=== PATIENT | male | born 1995 | race Caucasian/White ===

== ENCOUNTER 2017-12-04 03:55 | Emergency (ER) | payer OTHER ==
[~2017-12-04] VITALS: Ht 177.8 cm; Wt 72.6 kg
--- NOTE | 2017-12-04 04:18 | ER Report ---
History and Physical Time Seen By MD: 04:12 Hx. of Stated Complaint: patient woke up 30min ago with right ear pain; patient states that is is sharp pain HPI/ROS CHIEF COMPLAINT: Right ear pain HISTORY OF PRESENT ILLNESS: Right sided ear pain onset 03 20 this morning without hearing loss discharge or tinnitus associated symptoms include sore throat. No fevers. No vomiting REVIEW OF SYSTEMS: Respiratory: No cough, no dyspnea. Cardiovascular: No chest pain, no palpitations. Gastrointestinal: No vomiting, no abdominal pain. Musculoskeletal: No back pain. Allergies: Coded Allergies: No Known Drug Allergies (Unverified , 12/04/17) Home Meds No Active Prescriptions or Reported Meds Hx Substance Use Disorder: No Hx Alcohol Use: No Constitutional Vital Sign - Last 24 Hours 12/04/17 04:00 Temp 98.8 Pulse 54 Resp 19 B/P (MAP) 139/101 Pulse Ox 97 O2 Delivery Room Air Physical Exam General Appearance: The patient is alert, has no immediate need for airway protection and no current signs of toxicity. No acute distress Eyes: Pupils equal and round no injection. HEENT: Right tympanic membrane injected with loss of landmarks, left appears normal, mild erythema posterior oropharynx without significant tonsillar swelling or abscess. No exudates Respiratory: Chest is non tender, lungs are clear to auscultation. Cardiac: regular rate and rhythm no murmurs gallops or rubs Gastrointestinal: Abdomen is soft and non tender, no masses, bowel sounds normal. Musculoskeletal: Neck: Neck is supple and non tender. Extremities have full range of motion and are non tender. Skin: No rashes or lesions. Normal DIFFERENTIAL DIAGNOSIS: After history and physical exam differential diagnosis was considered for acute otitis media, otitis externa, Mnire's disease Medical Decision Making ED Course/Re-evaluation ED Course Acute otitis media requests Motrin for pain denies antibiotic allergies Decision to Disposition Date: Dec 04, 2017 Decision to Disposition Time: 04:20 Depart Departure Latest Vital Signs Vital Signs Date Time Temp Pulse Resp B/P (MAP) Pulse Ox O2 Delivery O2 Flow Rate FiO2 12/04/17 04:00 98.8 54 19 139/101 97 Room Air Impression: Primary Impression: Acute otitis media with effusion of right ear Condition: Improved Disposition: HOME OR SELF-CARE Referrals: [facility] Amoxicillin (AMOXICILLIN) 500 Mg Capsule 1 CAP PO Q8H for 10 Days, #30 CAPSULE 0 Refills Prov: MAURI PARKER MD 12/04/17 Patient Instructions: Otitis Media (ED) MAURI PARKER MD Dec 04, 2017 04:18
[2017-12-04] MEDS ORDERED: IBUPROFEN 600 MG TAB PO ONE (04:20)
[2017-12-04] MEDS ORDERED: PROPARACAINE 0.5% OP 15ML BTL OD ONE (04:20)
[2017-12-04] MEDS ORDERED: AMOX-362 PO (04:21)
[2017-12-04 04:34] VITALS: BP 134/88
== END 2017-12-04 04:32 | disposition home or self-care (01) ==
LOC: ER 04:15
DX: H66.91 Otitis media, unspecified, right ear (principal)
CPT/HCPCS: 99282

== ENCOUNTER 2019-02-11 12:46 | Day surgery (SDC) | payer OTHER ==
[~2019-02-11 12:46] MED LIST: AMOX-362 PO
--- NOTE | 2019-02-11 13:03 | ER Report ---
History and Physical Time Seen By MD: 12:57 Hx. of Stated Complaint: PATIENT STATES THAT HE HAS HAD ABDOMINAL PAIN SINCE 0600; STATES THAT IT WAS "ALL OVER" AND NOW IT IS RIGHT LOWER QUADRANT; STATES THAT PAIN THIS AM WAS AN 8 AND NOW IT IS AN 1 HPI/ROS CHIEF COMPLAINT: Abdominal pain HISTORY OF PRESENT ILLNESS: This is a 23-year-old male presents to emergency department for abdominal pain per patient states that when he woke up this morning he had generalized abdominal pain, localizing now to the right lower quadrant, does have some exacerbation of the discomfort in the right lower quadrant with urination however he denies STDs or testicular pain or penile discharge. No fevers or chills, he did have nausea this morning no vomiting. Stools were a bit more firm today than usual, no blood noted. No chest pain or shortness of breath. The pain is now resolving. REVIEW OF SYSTEMS: Constitutional: No fever, no chills. Eyes: No discharge. ENT: No sore throat. Cardiovascular: No chest pain, no palpitations. Respiratory: No cough, no shortness of breath. Gastrointestinal: As above. Genitourinary: As above. Musculoskeletal: No back pain. Skin: No rashes. Neurological: No headache. Allergies: Coded Allergies: No Known Drug Allergies (Unverified , 02/11/19) Home Meds Discontinued Scripts Amoxicillin (AMOXICILLIN) 500 Mg Capsule, 1 CAP PO Q8H for 10 Days, #30 CAPSULE 0 Refills Prov:MAURI PARKER MD 12/04/17 Past Medical/Surgical History The patient has a past medical and surgical history of right collarbone fracture, anxiety with suicidal thoughts, not currently today. Reviewed Nurses Notes: Yes Hx Substance Use Disorder: No Hx Alcohol Use: No Constitutional Vital Sign - Last 24 Hours 02/11/19 02/11/19 02/11/19 02/11/19 12:52 12:52 13:00 13:16 Temp 98.7 Pulse 78 62 Resp 18 B/P (MAP) 151/99 (116) 151/99 143/81 (101) Pulse Ox 98 95 O2 Delivery Room Air 02/11/19 02/11/19 02/11/19 02/11/19 13:30 13:46 14:00 14:16 Pulse 63 58 B/P (MAP) 127/71 (89) 136/83 (100) Pulse Ox 96 94 02/11/19 14:30 Temp 98.7 B/P (MAP) 155/62 (93) Physical Exam General Appearance: The patient is alert, has no immediate need for airway protection and no signs of toxicity. Eyes: Pupils equal and round no pallor or injection. ENT, Mouth: Mucous membranes are moist. Respiratory: There are no retractions, lungs are clear to auscultation. Cardiovascular: Regular rate and rhythm. Gastrointestinal: Abdomen is soft, very mild right lower tenderness with firm palpation, no rebound tenderness, no masses, bowel sounds normal. No CVA tenderness. Neurological: Alert and oriented to 4. Moving all extremities. Following all commands. No focal neuro deficits. Skin: Warm and dry, no rashes. Musculoskeletal: Neck is supple non tender. Extremities are nontender, nonswollen and have full range of motion. DIFFERENTIAL DIAGNOSIS: After history and physical exam differential diagnosis was considered for abdominal pain including but not limited to appendicitis, renal colic, cholecystitis, gastritis and urinary tract infection. Medical Decision Making Data Points Result Diagram: 02/11/19 0000 02/11/19 0000 Laboratory Hematology Test 02/11/19 00:00 02/11/19 12:51 Red Blood Count 5.95 M/uL (4.00-5.60) Mean Corpuscular Volume 90.4 fL (80.0-96.0) Mean Corpuscular Hemoglobin 30.8 pg (26.0-33.0) Mean Corpuscular Hemoglobin Concent 34.1 g/dL (32.0-36.0) Red Cell Distribution Width 12.8 % (11.5-14.5) Mean Platelet Volume 7.6 fL (7.2-11.1) Neutrophils (%) (Auto) 73.7 % (39.4-72.5) Lymphocytes (%) (Auto) 14.9 % (17.6-49.6) Monocytes (%) (Auto) 10.8 % (4.1-12.4) Eosinophils (%) (Auto) 0.3 % (0.4-6.7) Basophils (%) (Auto) 0.3 % (0.3-1.4) Nucleated RBC Relative Count (auto) 0.0 /100WBC Neutrophils # (Auto) 10.3 K/uL (2.0-7.4) Lymphocytes # (Auto) 2.1 K/uL (1.3-3.6) Monocytes # (Auto) 1.5 K/uL (0.3-1.0) Eosinophils # (Auto) 0.0 K/uL (0.0-0.5) Basophils # (Auto) 0.0 K/uL (0.0-0.1) Nucleated RBC Absolute Count (auto) 0.00 K/uL Sodium Level 141 mmol/L (137-145) Potassium Level 3.8 mmol/L (3.5-5.0) Chloride Level 102 mmol/L (98-107) Carbon Dioxide Level 26 mmol/L (22-30) Blood Urea Nitrogen 14 mg/dl (9-21) Creatinine 1.30 mg/dl (0.66-1.25) Glomerular Filtration Rate Calc > 60.0 Random Glucose 99 mg/dl (75-110) Calcium Level 10.2 mg/dl (8.4-10.2) Total Bilirubin 2.4 mg/dl (0.2-1.3) Aspartate Amino Transf (AST/SGOT) 33 U/L (0-35) Alanine Aminotransferase (ALT/SGPT) 27 U/L (0-56) Alkaline Phosphatase 100 U/L (0-126) Total Protein 8.6 g/dl (6.3-8.2) Albumin 5.4 g/dl (3.5-5.0) Urine Color Yellow Urine Clarity Clear Urine pH 7.0 pH (4.8-9.5) Urine Specific [place] 1.009 Urine Protein Negative mg/dL (NEGATIVE) Urine Glucose (UA) Negative mg/dL (NEGATIVE) Urine Ketones Negative mg/dL (NEGATIVE) Urine Blood Negative (NEGATIVE) Urine Nitrite Negative (NEGATIVE) Urine Bilirubin Negative (NEGATIVE) Urine Urobilinogen Negative mg/dL (0.2-1.9) Urine Leukocyte Esterase Negative (NEGATIVE) Urine RBC None /HPF (0-2/HPF) Urine WBC None /HPF (0-5/HPF) Urine Squamous Epithelial Cells None /LPF (</=FEW) Urine Bacteria Negative /HPF (NONE-FEW) Urine Mucus None /HPF (NONE-FEW) Chemistry Test 02/11/19 00:00 02/11/19 12:51 White Blood Count 14.0 k/uL (4.5-11.0) Red Blood Count 5.95 M/uL (4.00-5.60) Hemoglobin 18.4 g/dL (14.0-18.0) Hematocrit 53.8 % (42.0-52.0) Mean Corpuscular Volume 90.4 fL (80.0-96.0) Mean Corpuscular Hemoglobin 30.8 pg (26.0-33.0) Mean Corpuscular Hemoglobin Concent 34.1 g/dL (32.0-36.0) Red Cell Distribution Width 12.8 % (11.5-14.5) Platelet Count 279 K/uL (150-450) Mean Platelet Volume 7.6 fL (7.2-11.1) Neutrophils (%) (Auto) 73.7 % (39.4-72.5) Lymphocytes (%) (Auto) 14.9 % (17.6-49.6) Monocytes (%) (Auto) 10.8 % (4.1-12.4) Eosinophils (%) (Auto) 0.3 % (0.4-6.7) Basophils (%) (Auto) 0.3 % (0.3-1.4) Nucleated RBC Relative Count (auto) 0.0 /100WBC Neutrophils # (Auto) 10.3 K/uL (2.0-7.4) Lymphocytes # (Auto) 2.1 K/uL (1.3-3.6) Monocytes # (Auto) 1.5 K/uL (0.3-1.0) Eosinophils # (Auto) 0.0 K/uL (0.0-0.5) Basophils # (Auto) 0.0 K/uL (0.0-0.1) Nucleated RBC Absolute Count (auto) 0.00 K/uL Glomerular Filtration Rate Calc > 60.0 Calcium Level 10.2 mg/dl (8.4-10.2) Total Bilirubin 2.4 mg/dl (0.2-1.3) Aspartate Amino Transf (AST/SGOT) 33 U/L (0-35) Alanine Aminotransferase (ALT/SGPT) 27 U/L (0-56) Alkaline Phosphatase 100 U/L (0-126) Total Protein 8.6 g/dl (6.3-8.2) Albumin 5.4 g/dl (3.5-5.0) Urine Color Yellow Urine Clarity Clear Urine pH 7.0 pH (4.8-9.5) Urine Specific [place] 1.009 Urine Protein Negative mg/dL (NEGATIVE) Urine Glucose (UA) Negative mg/dL (NEGATIVE) Urine Ketones Negative mg/dL (NEGATIVE) Urine Blood Negative (NEGATIVE) Urine Nitrite Negative (NEGATIVE) Urine Bilirubin Negative (NEGATIVE) Urine Urobilinogen Negative mg/dL (0.2-1.9) Urine Leukocyte Esterase Negative (NEGATIVE) Urine RBC None /HPF (0-2/HPF) Urine WBC None /HPF (0-5/HPF) Urine Squamous Epithelial Cells None /LPF (</=FEW) Urine Bacteria Negative /HPF (NONE-FEW) Urine Mucus None /HPF (NONE-FEW) Urinalysis Test 02/11/19 12:51 Urine Color Yellow Urine Clarity Clear Urine pH 7.0 pH (4.8-9.5) Urine Specific [place] 1.009 Urine Protein Negative mg/dL (NEGATIVE) Urine Glucose (UA) Negative mg/dL (NEGATIVE) Urine Ketones Negative mg/dL (NEGATIVE) Urine Blood Negative (NEGATIVE) Urine Nitrite Negative (NEGATIVE) Urine Bilirubin Negative (NEGATIVE) Urine Urobilinogen Negative mg/dL (0.2-1.9) Urine Leukocyte Esterase Negative (NEGATIVE) Urine RBC None /HPF (0-2/HPF) Urine WBC None /HPF (0-5/HPF) Urine Squamous Epithelial Cells None /LPF (</=FEW) Urine Bacteria Negative /HPF (NONE-FEW) Urine Mucus None /HPF (NONE-FEW) EKG/Imaging Imaging Location: [facility] [place] Patient: Jorge Alberto Raya : 1995 Visit/Account:[id number] Date of Sevice: 02/11/2019 EXAMINATION: CT abdomen with IV contrast CT pelvis with IV contrast HISTORY: Right lower quadrant pain. Evaluate for appendicitis. COMPARISON: None. TECHNIQUE: Axial images were taken through the abdomen and pelvis with intravenous contrast. Sagittal and coronal reformatted images are also submitted. CONTRAST: 75 mL of IV Isovue-370. One of the following dose optimization techniques was utilized in the performance of this exam: Automated exposure control; adjustment of the mA and/or kV according to the patient's size; or use of an iterative reconstruction technique. Specific details can be referenced in the facility's radiology CT exam operational policy. FINDINGS: Liver/biliary: Negative. Pancreas: Negative. Spleen: Negative. Adrenal glands: Negative. Kidneys: Negative. Pelvic structures: Negative. Bowel: The appendix is inferior to the cecum and is abnormal. The appendix measures 11 mm in greatest thickness and the roa are edematous and mildly enhancing. Peritoneum/retroperitoneum/mesenteries: There is inflammatory stranding adjacent to the appendix. Small amount of free fluid in the pelvis. Vessels: Negative. Musculoskeletal/body wall: There are a few small Schmorl's nodes in the visualized spine. Lymph nodes: Negative. Lower chest: Negative. IMPRESSION: : Acute appendicitis. These findings were discussed with FAWAD HOANG at 02/11/2019 2:21 PM. Report Dictated By: Edwina Harrington MD at 02/11/2019 2:17 PM Report E-Signed By: Edwina Harrington MD at 02/11/2019 2:22 PM WSN:[email or web address] ED Course/Re-evaluation Clinical Indication for ER IV: Hydration, IV Access ED Course The patient was admitted to room. A history and physical were obtained. Differential diagnoses were considered. An IV was started. A CBC, CMP were obtained. Initially on exam patient was not having significant pain to the right lower quadrant, was going to start with a KUB however the patient's white count was 14,000, I reviewed this with the patient and suggested a CT scan instead, patient was agreeable with this plan. He was given a liter of normal saline. CT did reveal positive appendicitis. I reviewed the results with the patient. I did speak with Dr. Alli Kilpatrick surgeon on-call, patient will be admitted to the OR unit and scheduled for surgery around 5:00 this evening for an acute appendicitis. Patient was given 3.375 grams of Zosyn. Patient declined the medication during his stay in the emergency department. He had no other questions or concerns at the time of admission. 02/11/2019 2:42:08 pm and speak with Dr. Carson, the surgeon on-call, the patient will be taken to the OR for acute appendicitis. The patient's last oral intake was around 11:00, last food was around 8:00 this morning which was yogurt. Decision to Disposition Date: Feb 11, 2019 Decision to Disposition Time: 14:41 Depart Departure Latest Vital Signs Vital Signs Date Time Temp Pulse Resp B/P (MAP) Pulse Ox O2 Delivery O2 Flow Rate FiO2 02/11/19 14:30 98.7 155/62 (93) 02/11/19 14:16 58 94 02/11/19 12:52 18 Room Air Impression: Primary Impression: Appendicitis, acute Condition: Improved Disposition: ADMIT FROM ER TO OR New Scripts No Active Prescriptions or Reported Meds Problem Qualifiers Primary Impression: Appendicitis, acute Acute appendicitis type: with localized peritonitis Appendicitis gangrene presence: without gangrene Appendicitis perforation presence: without perforation Appendicitis abscess presence: without abscess Qualified Codes: K35.30 - Acute appendicitis with localized peritonitis, without perf oration or gangrene FAWAD HOANG-RICHARD Feb 11, 2019 13:02
[2019-02-11] MEDS ORDERED: NS(*) 0.9% 1000 ML BAG 1,000 ML IV ONE (13:11)
[2019-02-11 13:18] LABS: PLATELET COUNT, AUTOMATED 279 K/uL (150-450)
[2019-02-11] MEDS ORDERED: IOPAMIDOL 76% 150 ML INFUS BTL 150 ML ONE (13:51)
--- NOTE | 2019-02-11 14:26 | RADIOLOGY IMAGING REPORT ---
FACILITY: [facility] [place] PATIENT NAME: Jorge Alberto Raya : 1995 MR: [id number] V: [id number] EXAM DATE: [id number] ORDERING PHYSICIAN: FAWAD HOANG TECHNOLOGIST: Location: [facility] Patient: Jorge Alberto Raya : 1995 Visit/Account:[id number] Date of Sevice: 02/11/2019 EXAMINATION: CT abdomen with IV contrast CT pelvis with IV contrast HISTORY: Right lower quadrant pain. Evaluate for appendicitis. COMPARISON: None. TECHNIQUE: Axial images were taken through the abdomen and pelvis with intravenous contrast. Sagitt al and coronal reformatted images are also submitted. CONTRAST: 75 mL of IV Isovue-370. One of the following dose optimization techniques was utilized in the performance of this exam: Autom ated exposure control; adjustment of the mA and/or kV according to the patient's size; or use of an i terative reconstruction technique. Specific details can be referenced in the facility's radiology C T exam operational policy. FINDINGS: Liver/biliary: Negative. Pancreas: Negative. Spleen: Negative. Adrenal glands: Negative. Kidneys: Negative. Pelvic structures: Negative. Bowel: The appendix is inferior to the cecum and is abnormal. The appendix measures 11 mm in greates t thickness and the roa are edematous and mildly enhancing. Peritoneum/retroperitoneum/mesenteries: There is inflammatory stranding adjacent to the appendix. Sm all amount of free fluid in the pelvis. Vessels: Negative. Musculoskeletal/body wall: There are a few small Schmorl's nodes in the visualized spine. Lymph nodes: Negative. Lower chest: Negative. IMPRESSION: : Acute appendicitis. These findings were discussed with FAWAD HOANG at 02/11/2019 2:21 PM. Report Dictated By: Edwina Harrington MD at 02/11/2019 2:17 PM Report E-Signed By: Edwina Harrington MD at 02/11/2019 2:22 PM WSN:ALESSANDRA
[2019-02-11] MEDS ORDERED: PIPERACILLIN/TAZO*3.375GM VIAL 3.375 GM in NS(*) 0.9% 100 ML MINI-BAG 100 ML IVPB ONE (14:45)
[2019-02-11] MEDS ORDERED: NORMOSOL R SOLN(*) 1000 ML BAG 1,000 ML IV ONE (15:00)
[2019-02-11] MEDS ORDERED: FAMOTIDINE(*) 20MG/50ML PREMIX 50 ML IVPB ONE (15:00)
[2019-02-11] MEDS ORDERED: ROPIVACAINE 0.5% 20 ML VIAL ONE (15:18)
[2019-02-11 15:20] VITALS: BP 141/85
--- NOTE | 2019-02-11 15:25 | NUR ---
Pt. transferred from ER to Preop via bed. Sbar from [facility]. Two RNs on transfer. Belongings to [facility]. Pain assessed, denies at this time. No nausea. Pt. alert and oriented. Assessment WNL.
[2019-02-11] MEDS ORDERED: ONDANSETRON 4 MG/2 ML VIAL ONE (16:22)
[2019-02-11] MEDS ORDERED: KETAMINE HCL-NS 50 MG/5 ML SYR ONE (16:22)
[2019-02-11] MEDS ORDERED: SUCCINYLCHOL CHL 200MG/10ML VL ONE (16:22)
[2019-02-11] MEDS ORDERED: ROCURONIUM BROM 10 MG/ML 10 ML ONE (16:22)
[2019-02-11] MEDS ORDERED: DEXAMETHASONE SOD PHOS 10MG/ML ONE (16:22)
[2019-02-11] MEDS ORDERED: LIDOCAINE 2% IV 100 MG/5ML SYR ONE (16:22)
[2019-02-11] MEDS ORDERED: fentaNYL CITR 100 MCG/2 ML AMP ONE (16:22)
[2019-02-11] MEDS ORDERED: PROPOFOL EMUL(*) 10MG/ML 20 ML 20 ML ONE (16:22)
--- NOTE | 2019-02-11 17:11 | Gen Surgery History & Physical ---
History of Present Illness Chief Complaint Abdominal pain History of Present Illness 23yo male presents with 1 day h/o abdominal pain that started at 06:00 this morning. He had nausea, loose stool, and fevers/chills until 10:00 this morning but these symptoms resolved although the right lower quadrant pain has persisted. His WBC is elevated in mid-teens and CT c/w acute appendicitis. I have been asked to evaluate and manage this patient. History Home Meds Discontinued Scripts Amoxicillin (AMOXICILLIN) 500 Mg Capsule, 1 CAP PO Q8H for 10 Days, #30 CAPSULE 0 Refills Prov:MAURI PARKER MD 12/04/17 Allergies: Coded Allergies: No Known Drug Allergies (Unverified , 02/11/19) Review of Systems All Systems Reviewed/Normal: Yes, Except as Noted Gastrointestinal: Nausea, Diarrhea, Abdominal Pain Exam General Appearance: Alert, Awake, No Acute Distress, Afebrile Neuro: No Gross deficits Eyes: PERRLA GI: Other (Soft, RLQ TTP with focal peritoneal irritation) Extremities: Warm, Perfused Psych: Alert & Oriented X3, Appropriate Mood & Affect Medical Decision Making Data Points Result Diagram: 02/11/19 0000 02/11/19 0000 Assessment and Plan Problems: (1) Appendicitis, acute Status: Acute Assessment & Plan: 02/11/19: Admit, NPO, IV fluids, IV abx, to OR for lap appy. I have explained appendicitis and it's treatment with the patient in great detail. I have recommended lap appy as the quickest treatment to get rid of the infection, get him recovered usually in the quickest possible way, and to prevent future episodes of appendicitis. I have explained lap appy with him in great detail along with the alternatives, risks, and expected recovery. He indicates his understanding of this discussion and his questions have been answered. He would like to proceed with this plan including lap appy. Condition Stable. Time Spent: < 30 min Venous Thromboembolism VTE Risk Physician Assess for VTE Risk: Yes Patient's VTE Risk: Low VTE Diagnostic Test 2 Days Prior to Admit: No Antithrombotics Is Pt On Any Antithrombotics?: No Problem Qualifiers (1) Appendicitis, acute: Acute appendicitis type: with localized peritonitis Appendicitis gangrene presence: without gangrene Appendicitis perforation presence: without perforation Appendicitis abscess presence: without abscess Qualified Codes: K35.30 - Acute appendicitis with localized peritonitis, without perforation or gangrene TUAN OJEDA MD Feb 11, 2019 17:11
[2019-02-11] MEDS ORDERED: DOCU-416 PO (18:05)
[2019-02-11] MEDS ORDERED: TRAM-420 PO (18:05)
--- NOTE | 2019-02-11 18:10 | Short(Outpt) Discharge Summary ---
Discharge Summary Reason for Hosp/Final Diag: (1) Appendicitis, acute Status: Acute Hospital Course & Plan: 02/11/19: Admit, NPO, IV fluids, IV abx, to OR for lap appy. I have explained appendicitis and it's treatment with the patient in great detail. I have recommended lap appy as the quickest treatment to get rid of the infection, get him recovered usually in the quickest possible way, and to prevent future episodes of appendicitis. I have explained lap appy with him in great detail along with the alternatives, risks, and expected recovery. He in dicates his understanding of this discussion and his questions have been answered. He would like to proceed with this plan including lap appy. 02/11/19 (postop): Lap appy completed without problems. Pt tolerated the procedure without issues and so was d/madelaine to home from PACU in good condition. Departure Discharge to: Home, Self Care Discharge Instructions Home Meds Active Scripts Docusate Sodium (COLACE) 100 Mg Capsule, 1 CAP PO BID, #30 CAP 0 Refills TAKE WITH A FULL GLASS OF WATER Prov:TUAN OJEDA MD 02/11/19 Tramadol Hcl (TRAMADOL HCL) 50 Mg Tablet, 1 TAB PO Q4H PRN for PAIN, #20 TAB 0 Refills Prov:TUAN OJEDA MD 02/11/19 Discontinued Scripts Amoxicillin (AMOXICILLIN) 500 Mg Capsule, 1 CAP PO Q8H for 10 Days, #30 CAPSULE 0 Refills Prov:MAURI PARKER MD 12/04/17 Follow up Referrals: General Surgery - 02/25/19 @ Surgery, General with TUAN OJEDA MD You have a follow up appointment scheduled with Dr. Ojeda on 02/25/19, at 9:15am. Diet: Regular Activity: As Tolerated Special Instructions: You may remove the white surgical dressings on 02/13/19, then you can shower. After showering, leave the incisions open to air but leave the steristrips in place until they fall off on their own. Do not immerse the incisions for 2 weeks. Avoid any activity that involves straining or lifting more than 10 pounds for 1 week after surgery. Problem Qualifiers (1) Appendicitis, acute: Acute appendicitis type: with localized peritonitis Appendicitis gangrene pr esence: without gangrene Appendicitis perforation presence: without perforation Appendicitis abscess presence: without abscess Qualified Codes: K35.30 - Acute appendicitis with localized peritonitis, without perforation or gangrene TUAN OJEDA MD Feb 11, 2019 18:10
[2019-02-11] MEDS ORDERED: KETOROLAC 30 MG/ML VIAL ONE (18:15)
--- NOTE | 2019-02-11 18:16 | Post Operative Progress Note ---
Post Operative Progress Note Date: Feb 11, 2019 Time: 18:10 Surgeon: Katia Dictation number: [id number] Anesthesia: GETA by Dr. Lunsford Pre-Op Diagnosis: Acute appendicitis Post-Op Diagnosis: Acute purulent appendicitis Findings: C/W dx, no abscess, gangrene, or perforation Procedure(s): Lap appy Specimen Removed:(May be N/A): Appendix Complications: none Fluids: See anesthesia record Estimated Blood Loss: Minimal Date OP Note Dictated: Feb 11, 2019 Time OP Note Dictated: 18:11 TUAN OJEDA MD Feb 11, 2019 18:16
[2019-02-11 18:45] VITALS: BP 135/83
[2019-02-11 19:06] VITALS: BP 136/76
[2019-02-11 19:09] VITALS: BP 142/85
--- NOTE | 2019-02-11 19:36 | NUR ---
1840 PT TRANSFERRED TO [place] PHASE 2 CHARTING, 184 VSS, DECLINES FOOD 185 BOTH PARENTS TO BEDSIDE 1905 ORHTOSTATIC VITALS STABLE, PT DENIES DIZZINESS, DRESSES WITH PARENTS HELP 1912 IV OUT, CATH TIP INTACT, PRESSURE DRESSING APPLIED 1919 D/C INSTRUCTIONS COVERED WITH PARENTS AND PT 1929 OUT TO CARE OUTSIDE OR ER, PT DECLINES WC MULTIPLE TIMES. STEADY ON FEET, BUT PALE LOOKING, PT SELF TRANSFERRED TO CAR WITHOUT INCIDENT. ALL BELONGINGS WITH PT.
--- NOTE | 2019-02-12 03:55 | OPERATIVE REPORT 1 ---
EVENT DATE: February 11, 2019 SURGEON: Landon Montalvo MD ANESTHESIOLOGIST: Cam Lunsford DO ANESTHESIA: General endotracheal anesthesia. PREOPERATIVE DIAGNOSIS Acute appendicitis. POSTOPERATIVE DIAGNOSIS Acute suppurative appendicitis. PROCEDURE PERFORMED Laparoscopic appendectomy. COMPLICATIONS None. CONDITION Stable. ESTIMATED BLOOD LOSS Minimal. FINDINGS This patient had a purulent appendix but no gangrene or perforation and no abscess. SPECIMENS Appendix. INDICATIONS This is a 22-year-old gentleman who came in to the emergency room today with a one-day history of abdominal pain that migrated to the right lower quadrant. His white count was found to be elevated, and a CT was consistent with acute appendicitis. He was consented for laparoscopic appendectomy. DESCRIPTION OF PROCEDURE Patient was brought to the operating room and placed supine on the operating table. General endotracheal anesthesia was administered, and his abdomen was prepped and draped in a sterile fashion. A time-out was completed, and I injected the umbilical skin with 0.5% bupivacaine plain. I made a vertical incision right through the base of his very shallow umbilicus and dissected through the dermis and into the subcutaneous fat. I then made a vertical incision in the midline fascia, and I grasped the fascial edges with Reginaldo clamps and then penetrated the peritoneal cavity with a hemostat very easily. I placed two interrupted 0 Vicryl sutures transversely through the vertical fascial defect and inserted a 12 mm Charles-type port through this wound and secured it in place with sutures. I insufflated the abdomen to a pressure of 15 mmHg and inserted a 5 mm 30-degree angled scope through this port. Under direct visualization, I placed a 5 mm port in the suprapubic midline and a 5 mm port in the left lower quadrant. Patient was placed in Trendelenburg and planed toward his line to move the viscera from the right lower quadrant, and I identified easily the very inflamed appendix. I divided the mesoappendix with a LigaSure device all the way up to the base of the appendix and then divided the base of the appendix flush with the cecum with an EndoGIA stapler with a blue load. I placed the appendix in a surgical specimen retrieval bag and removed it from the abdomen through the umbilical port site. I irrigated and dried the right lower quadrant and used suction to suck out the irrigation fluid, and there was some oozing from the staple line, which I controlled with 5 mm clips and suctioned up some stray jaqueline. I then irrigated and dried the pelvis, which had some yellowish fluid in it, and otherwise there was no purulent fluid throughout the rest of the abdomen. No other intra-abdominal abnormalities were found. Both groins were inspected, and there was no hernia in either inguinal canal. I then went back and inspected the staple line, and it was flush with the cecum, and there was no impingement on the terminal ileum or the ileocecal valve, and there was no bleeding from the divided mesoappendix or the staple line. I then removed the 5 mm ports, desufflated the abdomen and removed the camera and the umbilical port, and then placed two more 0 Vicryl sutures through the vertical fascial defect and tied all four of these down with good reapproximation of the fascial edges and no remaining fascial defect. I then closed the skin at the incisions of each port site with 4-0 Monocryl running subcuticular sutures. Skin was cleaned and dried and Steri-Strips were applied, followed by sterile surgical dressings. The patient was then awakened and extubated in the operating room and transported to the recovery room in stable condition, having tolerated the procedure without apparent problems. GRISEL
== END 2019-02-11 18:40 | disposition home or self-care (01) ==
LOC: ER 13:23 → OR 14:55
PROVIDERS: ATTEND Surgery
DX: K35.30 Acute appendicitis with localized peritonitis, without perforation or gangrene (principal)
CPT/HCPCS: 44970; 74177; 81001; 85025; 88304; 96361; 96365; 96375; 99285; J0330; J1100; J1885; J2001; J2405; J2543; J2704; J2795; J3010; J3490; J7030; Q9967; 82040; 82247; 82310; 82374; 82435; 82565; 82947; 84075; 84132; 84155; 84295; 84450; 84460; 84520